=== PATIENT | female | born 1975 | race Hispanic/Latino ===

== ENCOUNTER 2020-05-26 10:13 | Emergency (ER) | payer BC, OTHER ==
[~2020-05-26] VITALS: Ht 177.8 cm; Wt 145.1 kg
[2020-05-26] MEDS ORDERED: ACETAMINOPHEN 325 MG TAB PO NR (10:45)
[2020-05-26] MEDS ORDERED: LACTATED RINGER'S 500 ML IV ONE (10:45)
[2020-05-26] MEDS ORDERED: KETOROLAC TROMETHAMINE 30 MG/ML VIAL IV NR (10:45)
[2020-05-26 10:51] LABS: HEMATOCRIT 40.6 % (34.2-44.1); HEMOGLOBIN 13.6 g/dL (12.0-16.0); LYMPHOCYTES % 18.8 % (18.0-39.1); MEAN CORPUSCULAR HEMOGLOBIN 30.2 pg (28-32); MEAN CORPUSCULAR HGB CONC 33.5 g/dL (31-35); MEAN CORPUSCULAR VOLUME 90.2 fL (81-99); MONOCYTES # (AUTO) 0.5 (0.2-0.8); MONOCYTES % 9.1 % (4.4-11.3); NEUTROPHILS # (AUTO) 3.8 (2.1-6.9); NEUTROPHILS % 71.5 % (38.7-80.0); PLATELET COUNT 163 x10e3/uL (140-360); RED CELL DISTRIBUTION WIDTH 12.4 % (11.7-14.4)
[2020-05-26] MEDS ORDERED: FLUTICASONE PRO16 GM (10:53)
[2020-05-26] MEDS ORDERED: CLONAZEPAM0.5 MG (10:53)
[2020-05-26] MEDS ORDERED: VITAMIN (10:53)
[2020-05-26] MEDS ORDERED: LOSARTAN POTASS25 MG (10:53)
[2020-05-26] MEDS ORDERED: ALBUTEROL (10:53)
[2020-05-26] MEDS ORDERED: LINZESS145 MCG (10:53)
[2020-05-26] MEDS ORDERED: SOLIQUA 100 UNIT3 ML (10:53)
[2020-05-26] MEDS ORDERED: ATORVASTATIN CA40 MG (10:53)
[2020-05-26 11:02] LABS: ALANINE AMINOTRANSFERASE 91 IU/L (0-55); ALBUMIN 3.3 g/dL (3.5-5.0); ALBUMIN/GLOBULIN RATIO 0.7 (0.8-2.0); ALKALINE PHOSPHATASE 54 IU/L (40-150); ANION GAP 13.8 mmol/L (8-16); BLOOD UREA NITROGEN 8 mg/dL (7-26); BUN/CREATININE RATIO 9 (6-25); CALCIUM 8.3 mg/dL (8.4-10.2); CARBON DIOXIDE 24 mmol/L (22-29); CHLORIDE 99 mmol/L (98-107); CREATININE, SERUM 0.93 mg/dL (0.57-1.11); EST GLOMERULAR FILTRATION RATE > 60 ML/MIN (60-); GLUCOSE 156 mg/dL (74-118); POTASSIUM 3.8 mmol/L (3.5-5.1); SODIUM 133 mmol/L (136-145)
[2020-05-26] MEDS ORDERED: LACTATED RINGER'S 1,000 ML ONE (11:03)
== END 2020-05-26 12:25 | disposition home or self-care (01) ==
LOC: ER 10:33
DX: U07.1 COVID-19 (principal); R06.02 Shortness of breath; R50.9 Fever, unspecified; I10 Essential (primary) hypertension; E11.65 Type 2 diabetes mellitus with hyperglycemia; E78.5 Hyperlipidemia, unspecified; F41.9 Anxiety disorder, unspecified; E66.9 Obesity, unspecified
CPT/HCPCS: 36415; 80053; 83880; 84484; 84702; 85025; 93005; 99284; J1885; J7120; J7121; U0002

== ENCOUNTER → 2024-12-02 | Day surgery (SDC) | payer OTHER ==
[~2024-12-02] MED LIST: ALBUTEROL; ALBUTEROL0.63 MG/3 NEB; ATORVASTATIN CA40 MG PO; BYSTOLIC10 MG PO; CLONAZEPAM0.5 MG; CYMBALTA30 MG PO; FENTANYL CITRATE/PF 100MCG/2 ML INJ ONE; FLUTICASONE PRO16 GM; GLUCAGON FOR INJ 1 MG VIAL ONE; HYOSCYAMINE SULFATE 0.5 MG/ML INJ ONE; LIDOCAINE HCL 2% LOCAL INJ 5 ML SDV VIAL INJ ONE; LINZESS145 MCG; LOSARTAN POTASS25 MG PO; METOCLOPRAMIDE HCL 10 MG/2ML VIAL ONE; MIDAZOLAM HCL 2 MG/2 ML VIAL ONE; MOUNJARO12.5 MG/0. SC; PROPOFOL IV EMULSION 10 MG/ML 20 ML VIAL ONE; SOLIQUA 100 UNIT3 ML; VITAMIN
[2024-12-02] MEDS: LACTATED RINGER'S 1,000 ML ONE (11:09)
[2024-12-02] MEDS: DEXTROSE 5% 250ML 250 ML IV ONE (11:23)
[2024-12-02 14:15] VITALS: BP 100/65; PULSE 74; RESP 15; TEMP 97; O2SAT 97
== END | disposition home or self-care (01) ==
LOC: OR 10:46
PROVIDERS: ATTEND Internal Medicine Gastroenterology
DX: K29.70 Gastritis, unspecified, without bleeding (principal); D12.3 Benign neoplasm of transverse colon; K20.90 Esophagitis, unspecified without bleeding; K57.30 Diverticulosis of large intestine without perforation or abscess without bleeding; K64.8 Other hemorrhoids; Z98.84 Bariatric surgery status; E11.9 Type 2 diabetes mellitus without complications; I10 Essential (primary) hypertension; E78.5 Hyperlipidemia, unspecified; E66.01 Morbid (severe) obesity due to excess calories; F32.A Depression, unspecified; F41.9 Anxiety disorder, unspecified; Z01.810 Encounter for preprocedural cardiovascular examination; Z79.85 Long-term (current) use of injectable non-insulin antidiabetic drugs; Z79.899 Other long term (current) drug therapy; Z68.36 Body mass index [BMI] 36.0-36.9, adult; Z71.3 Dietary counseling and surveillance; Z80.0 Family history of malignant neoplasm of digestive organs
CPT/HCPCS: 36415; 43239; 45385; 82948; 93005; J1610; J1980; J2003; J2250; J2470; J2704; J2765; J3010; J7121